=== PATIENT | male | born 1995 | race Two or more races ===

== ENCOUNTER 2017-08-03 23:36 | Emergency (ER) | payer MEDICAID ==
[~2017-08-03] VITALS: Ht 175.3 cm; Wt 77.1 kg
[2017-08-04] VITALS: BP 118/74
--- NOTE | 2017-08-04 00:14 | Emergency Room Report ---
History of Present Illness General Chief Complaint: Head Injury Source: Patient Present Illness [facility] Patient defending his brother and resisted arrest. He was taken down to ground and scraped the side of his head. No LOC. Minimal pain now. No NV. No neck pain. Patient states Tetanus UTD. No fevers, other extremity pain, CP, abdominal pain, dysuria. No SI/HI. Allergies: Coded Allergies: No Known Allergies (Unverified , 08/03/17) Patient History Past Medical History: see triage record Social History: Denies: smoking, alcohol use, drug use Social History Narrative arrested for resisting arrest Reviewed Nursing Documentation: PMH: Agreed, PSxH: Agreed Nursing Documentation-PMH Past Medical History: No Stated History Review of Systems All Other Systems: negative except mentioned in HPI Physical Exam Vital Signs Date Time Temp Pulse Resp B/P (MAP) Pulse Ox O2 Delivery O2 Flow Rate FiO2 08/03/17 23:38 98.2 96 18 118/74 98 Room Air Sp02 EP Interpretation: reviewed, normal General Appearance: well appearing, no apparent distress Head: normocephalic, other - abrasion R forehead Eyes: bilateral eye PERRL, bilateral eye Scleral Injection ENT: hearing grossly normal, normal voice, other - no hemotympanum Neck: full range of motion, supple, no bony tend Respiratory: chest non-tender, lungs clear, no respiratory distress, speaking full sentences Cardiovascular #1: normal peripheral pulses, regular rate, rhythm Gastrointestinal: normal inspection, normal bowel sounds, scaphoid Musculoskeletal: normal inspection, digits/nails normal, gait/station normal, normal range of motion, pelvis stable Neurologic: alert, oriented x3, enterprise application architect III-XII nml as tested, motor strength/tone normal, DTRs symmetric, sensory intact, cerebellar normal, normal gait, speech normal Psychiatric: mood/affect normal Skin: other - a few erythematous streks on shoulders and abrasion as above Medical Decision Making Diagnostic Impression: Primary Impression: Acute head injury Qualified Codes: S09.90XA - Unspecified injury of head, initial encounter Additional Impression: Abrasion ER Course Patient with head injury and abrasion without LOC. Clinically, no indication for xrays. No concussion. Wound needs treatment. Patient declines pain medicine. Patient stable for outpatient observation and treatment. Last Vital Signs Date Time Temp Pulse Resp B/P (MAP) Pulse Ox O2 Delivery O2 Flow Rate FiO2 08/04/17 00:30 98.2 96 18 118/74 98 Room Air Status: improved Disposition: D/C TO LAW ENFORCEMENT IN [facility] Condition: Improved Scripts Bacitracin (Bacitracin) 28.4 Gm Oint...g. 1 APPLIC TOPIC BID, #10 GM Prov: Steve Kyle M.D. 08/04/17 Referrals: [facility],REFERRING (PCP) Steve Kyle M.D. Aug 04, 2017 00:14
[2017-08-04] MEDS ORDERED: Bacitracin Oint UD TOPIC ONE (00:15)
[2017-08-04] MEDS ORDERED: BACITRACIN15 GM TOPIC (00:16)
[2017-08-04 00:30] VITALS: BP 118/74
== END 2017-08-04 00:30 ==
LOC: EMR 23:58
DX: S00.81XA Abrasion of other part of head, initial encounter (principal); Y35.891A Legal intervention involving other specified means, law enforcement official injured, initial encounter; Y92.89 Other specified places as the place of occurrence of the external cause
CPT/HCPCS: 99283